=== PATIENT | male | born 1980 | race Native Hawaiian/Other Pacific Islander ===

== ENCOUNTER 2019-09-12 07:08 | Outpatient (CLI) | payer OTHER ==
[~2019-09-12 07:08] MED LIST: CEPH500C20 PO; HYDR2.5C36 EX; LOPRESSOR100 MG PO
== END 2019-09-12 19:02 | disposition home or self-care (01) ==
LOC: LABW 07:08
DX: R53.83 Other fatigue (principal)
CPT/HCPCS: 36415; 84402; 84403